=== PATIENT | male | born 1975 | race American Indian/Alaskan Native ===

== ENCOUNTER 2017-05-27 11:56 | Emergency (ER) | payer BC ==
[2017-05-27 12:34] VITALS: BP 137/82
--- NOTE | 2017-05-27 14:28 | EDM.PDOC ---
ED HPI GENERAL MEDICAL PROBLEM - General Chief Complaint: Genitourinary Problem Stated Complaint: blood in urine [id number] Time Seen by Provider: 05/27/17 13:00 - History of Present Illness INITIAL COMMENTS - FREE TEXT/NARRATIVE: Veto is a 41-year-old man who comes in today with 6 hour history of blood in his urine. He states that he is not having any pain or urgency with this, he does state that he seems to be going to the bathroom much more frequently than usual. He is not having any burning with urination, no fevers or chills, no nausea or vomiting. Veto has had no issues with abdominal pain or kidney dysfunction in the past. - Related Data Allergies Allergy/AdvReac Type Severity Reaction Status Date / Time No Known Allergies Allergy Verified 02/03/16 19:41 Home Meds: Home Meds . [No Known Home Meds] 02/03/16 [History] Past Medical History HEENT History: Reports: None Cardiovascular History: Reports: None Respiratory History: Reports: None Gastrointestinal History: Reports: None Genitourinary History: Reports: None Musculoskeletal History: Reports: None Neurological History: Reports: None Psychiatric History: Reports: None Endocrine/Metabolic History: Reports: None Hematologic History: Reports: None Oncologic (Cancer) History: Reports: None Dermatologic History: Reports: None - Past Surgical History Head Surgeries/Procedures: Reports: None Musculoskeletal Surgical History: Reports: Other (See Below) Social & Family History - Tobacco Use Smoking Status *Q: Current Every Day Smoker Years of Tobacco use: 15 Packs/Tins Daily: 0.5 - Caffeine Use Caffeine Use: Reports: Coffee - Recreational Drug Use Recreational Drug Use: No ED ROS GENERAL - Review of Systems Review Of Systems: ROS reveals no pertinent complaints other than HPI. ED EXAM, RENAL/ - Physical Exam Exam: See Below Text/Narrative:: Gen.: Veto is a pleasant 41-year-old man in no acute distress Abdomen: Soft, nontender to palpation, normal bowel sounds heard throughout Urinalysis was negative for any sign of infection, it was positive for blood CT scan of the abdomen and pelvis was performed, radiologist read this as normal. Course - Vital Signs Last Recorded V/S: Last Vital Signs Temp 37.6 C 05/27/17 12:19 Pulse 62 05/27/17 12:19 Resp 18 05/27/17 12:19 BP 137/82 05/27/17 12:19 Pulse Ox 97 05/27/17 12:19 - Orders/Labs/Meds Orders: Active Orders 24 hr Category Date Time Status Abdomen Pelvis wo Cont [CT] Urgent Exams 05/27/17 13:05 Taken Labs: Laboratory Tests 05/27/17 Range/Units 12:30 Urine Color Straw (YELLOW) Urine Appearance Clear (CLEAR) Urine pH 5.0 (5.0-9.0) Ur Specific [place] <= 1.005 (1.005-1.030) Urine Protein Negative (NEGATIVE) Urine Glucose (UA) Negative (NEGATIVE) Urine Ketones Negative (NEGATIVE) Urine Occult Blood Large H (NEGATIVE) Urine Nitrite Negative (NEGATIVE) Urine Bilirubin Negative (NEGATIVE) Urine Urobilinogen 0.2 (0.2-1.0) mg/dL Ur Leukocyte Esterase Negative (NEGATIVE) Urine RBC 20-30 H /HPF Urine WBC 0-5 (0-5/HPF) /HPF Ur Epithelial Cells Rare /HPF Urine Bacteria Occasional (0-FEW/HPF) /HPF Departure - Departure Time of Disposition: 14:27 Disposition: Home, Self-Care 01 Clinical Impression: Painless hematuria - Discharge Information Forms: ED Department Discharge Additional Instructions: You need to follow up with a primary care doctor (family medicine or internal medicine) to make sure we find out where this bleeding is coming from. - Problem List & Annotations (1) Painless hematuria SNOMED Code(s): 661910357 Code(s): R31.9 - HEMATURIA, UNSPECIFIED Status: Acute Current Visit: Yes - Problem List Review Problem List Initiated/Reviewed/Updated: Yes - My Orders Last 24 Hours: My Active Orders 05/27/17 13:05 Abdomen Pelvis wo Cont [CT] Urgent - Assessment/Plan Last 24 Hours: My Active Orders 05/27/17 13:05 Abdomen Pelvis wo Cont [CT] Urgent
== END 2017-05-27 14:22 | disposition home or self-care (01) ==
LOC: DL.ED 11:56
DX: R31.9 Hematuria, unspecified (principal); F17.210 Nicotine dependence, cigarettes, uncomplicated
CPT/HCPCS: 74176; 81001; 99284

== ENCOUNTER 2017-11-20 02:05 | Emergency (ER) | payer BC ==
[2017-11-20 02:22] VITALS: BP 138/99
[2017-11-20] MEDS: Albuterol/Ipratropium 3.0-0.5 MG/3 ML Neb Soln NEB ONE (02:24)
[2017-11-20] MEDS: methylPREDNISolone Sodium Succinate 125 MG/2 ML SDV IVPUSH ONE (02:26)
[2017-11-20] MEDS: Morphine 4 MG/ML Syringe IVPUSH ONE (02:31)
[2017-11-20 02:47] LABS: CHLORIDE,CL 104 mmol/L (101-111); SODIUM,NA 139 mmol/L (135-145)
[2017-11-20] MEDS: Azithromycin 250 MG Tab PO ONE (03:42)
--- NOTE | 2017-11-20 03:42 | EDM.PDOC ---
ED HPI GENERAL MEDICAL PROBLEM - General Chief Complaint: Respiratory Problem Stated Complaint: TROUBLE BREATHING [id number] Time Seen by Provider: 11/20/17 02:10 Source of Information: Reports: Patient History Limitations: Reports: Respiratory Distress - History of Present Illness INITIAL COMMENTS - FREE TEXT/NARRATIVE: C/o sore throat x 2 days, coughing tonight sudden onset SOB no chest pain. Remote hx asthma as child. States feels like when coughing get mouth full of acid burning against throat. - Related Data Allergies Allergy/AdvReac Type Severity Reaction Status Date / Time No Known Allergies Allergy Verified 02/03/16 19:41 Home Meds: Home Meds . [No Known Home Meds] 02/03/16 [History] Past Medical History HEENT History: Reports: Impaired Vision Cardiovascular History: Reports: None Respiratory History: Reports: None Gastrointestinal History: Reports: None Genitourinary History: Reports: None Musculoskeletal History: Reports: None Neurological History: Reports: None Psychiatric History: Reports: None Endocrine/Metabolic History: Reports: None Hematologic History: Reports: None Oncologic (Cancer) History: Reports: None Dermatologic History: Reports: None - Past Surgical History Head Surgeries/Procedures: Reports: None Musculoskeletal Surgical History: Reports: Other (See Below) Social & Family History - Family History Family Medical History: Noncontributory - Tobacco Use Smoking Status *Q: Current Every Day Smoker Years of Tobacco use: 20 Packs/Tins Daily: 1 - Caffeine Use Caffeine Use: Reports: Coffee - Alcohol Use Days Per Week of Alcohol Use: 5 Number of Drinks Per Day: 4 Total Drinks Per Week: 20 - Recreational Drug Use Recreational Drug Use: No ED ROS GENERAL - Review of Systems Review Of Systems: ROS reveals no pertinent complaints other than HPI. ED EXAM, GENERAL - Physical Exam Exam: See Below Exam Limited By: No Limitations General Appearance: Alert, Anxious, Moderate Distress Eye Exam: Bilateral Eye: EOMI Ears: Normal External Exam, Normal TMs Nose: Normal Inspection Throat/Mouth: Inflammation, Other (posterior pharynx erythema, uvula midline mild erythema). No: Normal Voice (hoarse) Head: Normocephalic Neck: Normal Inspection, Non-Tender, Full Range of Motion. No: Lymphadenopathy (L), Lymphadenopathy (R) Respiratory/Chest: Decreased Breath Sounds, Wheezing Cardiovascular: Normal Peripheral Pulses, Regular Rate, Rhythm GI/Abdominal: Normal Bowel Sounds, Soft, Non-Tender Extremities: Normal Inspection, Normal Range of Motion Neurological: Alert, Oriented, Normal Cognition Psychiatric: Anxious Skin Exam: No Rash, Diaphoretic Course - Vital Signs Last Recorded V/S: Last Vital Signs Temp 98.1 F 11/20/17 02:10 Pulse 91 11/20/17 02:10 Resp 16 11/20/17 02:10 BP 138/99 H 11/20/17 02:10 Pulse Ox 100 11/20/17 02:10 - Orders/Labs/Meds Orders: Active Orders 24 hr Category Date Time Status EKG 12 Lead [EKG Documentation Completion] [RC] URGENT Care 11/20/17 02:08 Active RT Aerosol Therapy [RC] ASDIRECTED Care 11/20/17 02:21 Active CXR [Chest 1V Frontal] [CR] Urgent Exams 11/20/17 02:10 Taken CULTURE STREP A CONFIRMATION [] Stat Lab 11/20/17 02:08 Results STREP SCRN A RAPID W CULT CONF [] Stat Lab 11/20/17 02:08 Results Labs: Laboratory Tests 11/20/17 11/20/17 11/20/17 Range/Units 02:18 02:18 02:18 WBC 10.2 H (5.0-10.0) 10^3/uL RBC 5.04 (4.6-6.2) 10^6/uL Hgb 15.6 (14.0-18.0) g/dL Hct 47.0 (40.0-54.0) % MCV 93.3 (80-100) fL MCH 31.0 (27.0-34.0) pg MCHC 33.2 (33.0-35.0) g/dL Plt Count 186 (150-450) 10^3/uL Neut % (Auto) 58.2 (42.2-75.2) % Lymph % (Auto) 29.0 (20.5-50.1) % [place] % (Auto) 9.4 H (2-8) % Eos % (Auto) 3.0 (1.0-3.0) % Baso % (Auto) 0.4 (0.0-1.0) % Sodium 139 (135-145) mmol/L Potassium 4.0 (3.6-5.0) mmol/L Chloride 104 (101-111) mmol/L Carbon Dioxide 26.0 (21.0-31.0) mmol/L Anion Gap 13.0 BUN 14 (7-18) mg/dL Creatinine 1.0 (0.6-1.3) mg/dL Est Cr Clr Drug Dosing 106.70 mL/min Estimated GFR (MDRD) > 60 BUN/Creatinine Ratio 14.00 Glucose 100 (74-105) mg/dL Calcium 9.1 (8.4-10.2) mg/dl Total Bilirubin 0.4 (0.2-1.0) mg/dL AST 48 H (10-42) IU/L ALT 49 (10-60) IU/L Alkaline Phosphatase 75 (42-121) IU/L Troponin I < 0.02 (0.00-0.02) ng/ml Total Protein 7.2 (6.7-8.2) g/dl Albumin 4.1 (3.2-5.5) g/dl Globulin 3.1 Albumin/Globulin Ratio 1.32 Monoscreen Negative Meds: Medications Discontinued Medications Generic Name Dose Route Start Last Admin Trade Name Freq PRN Reason Stop Dose Admin Albuterol/Ipratropium 3 ml 11/20/17 02:21 11/20/17 02:24 Duoneb 3.0-0.5 Mg/3 Ml NEB 11/20/17 02:22 3 ml ONETIME ONE Administration Methylprednisolone Sodium Succinate 125 mg 11/20/17 02:21 11/20/17 02:26 Solu-Medrol IVPUSH 11/20/17 02:22 125 mg ONETIME ONE Administration Morphine Sulfate 2 mg 11/20/17 02:25 11/20/17 02:31 Morphine IVPUSH 11/20/17 02:26 2 mg ONETIME ONE Administration - Radiology Interpretation Free Text/Narrative:: CXR negative - Re-Assessments/Exams Free Text/Narrative Re-Assessment/Exam: 11/20/17 05:01 Breath sounds improved following nebulizer. Less anxious. Diaphoresis resolving. Departure - Departure Time of Disposition: 03:42 Disposition: Home, Self-Care 01 Condition: Good Clinical Impression: Bronchospasm with bronchitis, acute Pharyngitis Qualifiers: Pharyngitis/tonsillitis etiology: unspecified etiology Qualified Code(s): J02.9 - Acute pharyngitis, unspecified - Discharge Information *PRESCRIPTION DRUG MONITORING PROGRAM REVIEWED*: Not Applicable Instructions: Acute Bronchitis, Adult, [id number] Additional Instructions: increase fluids bland diet tylenol or ibuprofen alternate every 4 hours for fever/ discomfort azithromycin 250mg every day x 4 days tesselon 200mg every 8 hours as needed for cough albuterol inhaler 2 puffs every 4 hours as needed prednisone 20mg daily x 5 senior then 10mg x 2 days - My Orders Last 24 Hours: My Active Orders 11/20/17 02:08 EKG 12 Lead [EKG Documentation Completion] [RC] URGENT CULTURE STREP A CONFIRMATION [RM] Stat STREP SCRN A RAPID W CULT CONF [RM] Stat 11/20/17 02:10 CXR [Chest 1V Frontal] [CR] Urgent 11/20/17 02:21 RT Aerosol Therapy [RC] ASDIRECTED - Assessment/Plan Last 24 Hours: My Active Orders 11/20/17 02:08 EKG 12 Lead [EKG Documentation Completion] [RC] URGENT CULTURE STREP A CONFIRMATION [RM] Stat STREP SCRN A RAPID W CULT CONF [RM] Stat 11/20/17 02:10 CXR [Chest 1V Frontal] [CR] Urgent 11/20/17 02:21 RT Aerosol Therapy [RC] ASDIRECTED
== END 2017-11-20 03:52 | disposition home or self-care (01) ==
LOC: DL.ED 02:05
DX: J20.9 Acute bronchitis, unspecified (principal); J02.9 Acute pharyngitis, unspecified; F17.210 Nicotine dependence, cigarettes, uncomplicated
CPT/HCPCS: 36415; 71045; 80053; 84484; 85025; 86308; 87081; 87430; 93005; 94640; 96374; 96375; 99285; A9270-GY; J2270; J2930; J7620-GY

== ENCOUNTER 2018-05-15 06:08 | Day surgery (SDC) | payer BC, OTHER ==
[2018-05-15] MEDS ORDERED: Midazolam 1 MG/ML 2 ML SDV IV ONE ×3 (06:09→07:25)
[2018-05-15] MEDS ORDERED: fentaNYL 100 MCG/2 ML SDV IV ONE ×3 (06:09→07:23)
[2018-05-15] MEDS ORDERED: Midazolam 1 MG/ML 2 ML SDV ONE (06:20)
[2018-05-15] MEDS ORDERED: fentaNYL 100 MCG/2 ML SDV ONE (06:20)
[2018-05-15] MEDS ORDERED: Dextrose 5%-0.45% NaCl 1,000 ML IV SCH (06:30)
[2018-05-15 11:08] VITALS: BP 123/78
--- NOTE | 2018-05-15 14:05 | OR ---
DATE: 05/15/2018 PROCEDURE: Esophagogastroduodenoscopy and multiple pinch biopsies. INSTRUMENT USED: [id number] Olympus video panendoscope. PREMEDICATIONS: No oral topical anesthesia used. Fentanyl 100 mcg intravenous, Versed 2 mg intravenous. The procedure was done under pulse oximetry, BP recording, and manager music. INDICATION: The patient with heartburn, dyspepsia, and abdominal pain as well as recent melena. The esophagogastroduodenoscopy is performed for detection of any active erosive lesions, [place] esophagus and/or malignancy also under consideration, H. pylori status to be determined, small bowel biopsies to be taken if indicated, endoscopic hemostasis therapy if needed. DESCRIPTION OF PROCEDURE: The scope was passed with ease. Adequate visualization of the esophagus was made from proximal to distal areas. No upper esophageal lesions identified. No distal esophageal stricture. No uphill or downhill esophageal varices. No Tiffanie-Zacarias tear. Grade B erosive changes were noted by [place] criteria. No esophageal polyp or tumor mass identified. Z-line was seen at around 40 cm distal to the oral verge, configuration consistent with grade 2 by ZAP classification. No proximal gastric varices noted. Gastric fundus examination by retroflexion showed no polypoid lesions. The examination of the gastric mucosa was compromised due to the presence of some solid food material that could not be aspirated clear. No gastric ulcer, malignant mass, or vascular ectasia identified. Patchy erythema of the mucosa was noted from the duodenal bulb. Visualized second part of the duodenum was unremarkable. Multiple pinch biopsies were taken from the gastric antrum and proximal body and sent for PyloriTek test for H. pylori, and if negative in an hour, tissue is to be sent for histopathology. No bleeding was noted from any of the visualized areas at the completion of examination. Photographs were taken of the duodenal bulb, gastric antrum, fundus, and distal esophagus. IMPRESSION: Grade A gastroesophageal reflux disease. The patient tolerated the procedure well. [facility] /[id number]
--- NOTE | 2018-05-15 14:53 | LETTER ---
05/15/2018 Dr. Lonnie Alan [facility] [address] [place] [address] RE: VETO ARRIAGA CHRISTINA : [address] Alan: Mr. Veto Arriaga had esophagogastroduodenoscopy done this morning and he tolerated the procedure well. I herewith send a copy of endoscopy note and photographs for your review. He is recommended to take omeprazole 20 mg p.o. daily. Thank you. Sincerely, MODL /[id number]
== END 2018-05-15 09:35 | disposition home or self-care (01) ==
LOC: DL.ENDO 06:08
PROVIDERS: ATTEND Internal Medicine Gastroenterology
DX: K21.9 Gastro-esophageal reflux disease without esophagitis (principal); R10.13 Epigastric pain; B96.81 Helicobacter pylori [H. pylori] as the cause of diseases classified elsewhere; F17.210 Nicotine dependence, cigarettes, uncomplicated; D64.9 Anemia, unspecified
CPT/HCPCS: 43239; J7042; J2250; J3010

== ENCOUNTER 2020-07-16 19:58 | Emergency (ER) | payer BC, OTHER ==
[2020-07-16] MEDS ORDERED: Diphtheria,Pertussis(Acell),Tetanus Vaccine 0.5 ML Syringe IM ONE (21:35)
[2020-07-16] MEDS ORDERED: Bacitracin Oint 1 GM U/D Packet TOP ONE (21:35)
[2020-07-16] MEDS ORDERED: Lidocaine 1% 30 ML SDV INJECT ONE (21:35)
[2020-07-16 21:43] VITALS: BP 143/93; PULSE 99
--- NOTE | 2020-07-16 21:45 | EDM.PDOC ---
ED HPI GENERAL MEDICAL PROBLEM - General Chief Complaint: Laceration Stated Complaint: LEFT HAND POINTER FINGER, CUT Time Seen by Provider: 07/16/20 21:30 Source of Information: Reports: Patient, RN, RN Notes Reviewed History Limitations: Reports: No Limitations - History of Present Illness INITIAL COMMENTS - FREE TEXT/NARRATIVE: PT is a 44 year old male who presents to ER with c/o laceration to the left index finger. Patient states he slammed his finger in the trunk and was unable to get it out. Patient is able to move the finger. Patient states he is unsure of when his last tetanus vaccination was. Onset: Today, Sudden Left Finger-Index Pain Score (Numeric/FACES): 9 - Related Data Allergies Allergy/AdvReac Type Severity Reaction Status Date / Time pistachio nut Allergy Severe Anaphylactic Verified 07/16/20 21:31 Shock Past Medical History HEENT History: Reports: Impaired Vision Cardiovascular History: Reports: None Respiratory History: Reports: None Gastrointestinal History: Reports: GERD, GI Bleed Genitourinary History: Reports: None Musculoskeletal History: Reports: None Neurological History: Reports: None Psychiatric History: Reports: Other (See Below) Other Psychiatric History: tobacco and alcohol habituation Endocrine/Metabolic History: Reports: None Hematologic History: Reports: Anemia Immunologic History: Reports: None Oncologic (Cancer) History: Reports: None Dermatologic History: Reports: None - Infectious Disease History Infectious Disease History: Reports: Chicken Pox - Past Surgical History Head Surgeries/Procedures: Reports: None HEENT Surgical History: Reports: None Cardiovascular Surgical History: Reports: None GI Surgical History: Reports: None Male Surgical History: Reports: None Musculoskeletal Surgical History: Reports: Other (See Below) Other Musculoskeletal Surgeries/Procedures:: toes amputated Social & Family History - Family History Family Medical History: No Pertinent Family History - Tobacco Use Tobacco Use Status *Q: Current Every Day Tobacco User Years of Tobacco use: 23 Packs/Tins Daily: 0.3 - Caffeine Use Caffeine Use: Reports: Coffee Other Caffeine Use: 1 CUP DAILY - Recreational Drug Use Recreational Drug Use: No ED ROS GENERAL - Review of Systems Review Of Systems: Comprehensive ROS is negative, except as noted in HPI. ED EXAM, SKIN/RASH Exam: See Below Exam Limited By: No Limitations General Appearance: Alert, WD/WN, Mild Distress Eye Exam: Bilateral Eye: EOMI, Normal Inspection Ears: Normal External Exam, Hearing Grossly Normal Nose: Normal Inspection Throat/Mouth: Normal Inspection, Normal Voice, No Airway Compromise Head: Atraumatic, Normocephalic Neck: Normal Inspection, Supple, Non-Tender, Full Range of Motion Respiratory/Chest: No Respiratory Distress, Lungs Clear, Normal Breath Sounds, No Accessory Muscle Use, Chest Non-Tender Cardiovascular: Normal Peripheral Pulses, Regular Rate, Rhythm, No Edema, No Gallop, No JVD, No Murmur, No Rub Peripheral Pulses: 2+: Radial (L), Radial (R) GI/Abdominal: Normal Bowel Sounds, Soft, Non-Tender (Male) Exam: Deferred Rectal (Males) Exam: Deferred Back Exam: Normal Inspection, Full Range of Motion, NT Extremities: Normal Inspection, Normal Range of Motion, Non-Tender, No Pedal Edema, Normal Capillary Refill Neurological: Alert, Oriented, CN II-XII Intact, Normal Cognition, Normal Gait, Normal Reflexes, No Motor/Sensory Deficits Psychiatric: Normal Affect, Normal Mood, Anxious Skin: Warm, Dry, Normal Color, No Rash, Other (2cm laceration to the left index finger) Location, Skin: Upper Extremity, Left Lymphatic: No Adenopathy ED SKIN PROCEDURES - Laceration/Wound Repair Left Distal Ventral Digit - 2nd (Index) Appearance: Subcutaneous Distal NVT: Neuro & Vascular Intact Anesthetic Type: Local Local Anesthesia - Lidocaine (Xylocaine): 1% Plain Local Anesthetic Volume: 4cc Skin Prep: Chlorhexidine (Hibiciens) Exploration/Debridement/Repair: Wound Explored, In a Bloodless Field, Explored to Base, No Foreign Material Found Closed with: Sutures Lac/Wound length In cm: 2 Suture Size: 4-0 # of Sutures: 4 Suture Type: Nylon, Interrupted Drain Placement: No Sterile Dressing Applied: Nurse Tetanus Status Addressed: Yes Complications: No Course - Vital Signs Last Recorded V/S: Last Vital Signs Temp 97.6 F 07/16/20 21:32 Pulse 99 07/16/20 21:32 Resp 16 07/16/20 21:32 BP 143/93 H 07/16/20 21:32 Pulse Ox 99 07/16/20 21:32 - Orders/Labs/Meds Orders: Active Orders 24 hr Category Date Time Status Vaccines to be Administered [RC] PER UNIT ROUTINE Care 07/16/20 21:36 Active Meds: Medications Discontinued Medications Generic Name Dose Route Start Last Admin Trade Name Dustin PRN Reason Stop Dose Admin Bacitracin 1 dose 07/16/20 21:35 07/16/20 22:04 Bacitracin Oint 1 Gm U/D Packet TOP 07/16/20 21:36 1 dose ONETIME ONE Administration Diphtheria/Tetanus/Acell Pertussis 0.5 ml 07/16/20 21:35 07/16/20 22:03 Diphtheria,Pertussis(Acell),Tetanus Vaccine 0.5 Ml Syringe IM 07/16/20 21:36 0.5 ml .ONCE ONE Administration Ibuprofen 600 mg 07/16/20 22:11 Ibuprofen 600 Mg Tab PO 07/16/20 22:12 ONETIME ONE Lidocaine HCl 30 ml 07/16/20 21:35 07/16/20 22:04 Lidocaine 1% 30 Ml Sdv INJECT 07/16/20 21:36 30 ml ONETIME ONE Administration - Radiology Interpretation Free Text/Narrative:: left index finger xray: No fracture See rad report Departure - Departure Time of Disposition: 22:27 Disposition: Home, Self-Care 01 Condition: Good Clinical Impression: Laceration - Discharge Information *PRESCRIPTION DRUG MONITORING PROGRAM REVIEWED*: No *COPY OF PRESCRIPTION DRUG MONITORING REPORT IN PATIENT CED: No Instructions: Laceration Care, Adult, [id number], Sutures, Luis, or Adhesive Wound Closure, [id number] Forms: ED Department Discharge Additional Instructions: Keep area clean and dry Follow up in the clinic in 7-10 days to have sutures removed Monitor for signs of infection i.e. excessive swelling, drainage, fever, redness Sepsis Event Note (ED) - Evaluation Sepsis Screening Result: No Definite Risk - Focused Exam Vital Signs: Vital Signs Temp Pulse Resp BP Pulse Ox 07/16/20 21:32 97.6 F 99 16 143/93 H 99 - My Orders Last 24 Hours: My Active Orders 07/16/20 21:36 Vaccines to be Administered [RC] PER UNIT ROUTINE - Assessment/Plan Last 24 Hours: My Active Orders 07/16/20 21:36 Vaccines to be Administered [RC] PER UNIT ROUTINE
[2020-07-16] MEDS ORDERED: Ibuprofen 600 MG Tab PO ONE (22:11)
--- NOTE | 2020-07-16 22:15 | CR ---
PROCEDURE INFORMATION: Exam: XR Left Finger(s) Exam date and time: 07/16/2020 9:49 PM Age: 44 years old Clinical indication: Pain; Finger(s); Left; Additional info: Slammed in trunk TECHNIQUE: Imaging protocol: XR Left fingers. Views: Minimum 2 views. Total images: 3 COMPARISON: No relevant prior studies available. FINDINGS: Bones/joints: Three views of the left 2nd finger. No fracture or dislocation. Soft tissues: Normal. IMPRESSION: No fracture
== END 2020-07-16 22:43 | disposition home or self-care (01) ==
LOC: DL.ED 19:58
DX: S61.211A Laceration without foreign body of left index finger without damage to nail, initial encounter (principal); Z91.018 Allergy to other foods; Z72.0 Tobacco use; Z23 Encounter for immunization; W23.0XXA Caught, crushed, jammed, or pinched between moving objects, initial encounter
CPT/HCPCS: 12001; 73140; 90471; 90715; 99282; 99283; A9270